=== PATIENT | male | born 1940 | race Native Hawaiian/Other Pacific Islander ===

== ENCOUNTER 2023-12-16 14:52 | Emergency (ER) | payer MEDICARE ==
[~2023-12-16] VITALS: Ht 170.2 cm; Wt 81.8 kg
[2023-12-16] MEDS: TETanus/Pertussis (Acell)/Diphther VAC/PF (Tdap-Adult) 0.5ml syringe IMVAC ONE (15:46)
[2023-12-16] MEDS: bacitracin 15gm ointment TP ONE (15:49)
[2023-12-16] MEDS: ondansetron 4mg rapidly disintigrating tab PO ONE (15:49)
[2023-12-16] MEDS: acetaminophen 325mg tablet PO ONE (15:49)
[2023-12-16] MEDS: ketorolac trometh 15mg/ml vial 15 MG/ML ML IM ONE (15:51)
[2023-12-16 16:16] VITALS: BP 151/72; PULSE 16; RESP 16; TEMP 97.9; O2SAT 99
== END 2023-12-16 16:18 | disposition home or self-care (01) ==
LOC: ER 14:53
DX: S40.011A Contusion of right shoulder, initial encounter (principal); M25.561 Pain in right knee; W18.39XA Other fall on same level, initial encounter; Y93.89 Activity, other specified; Y92.89 Other specified places as the place of occurrence of the external cause; Y99.8 Other external cause status
CPT/HCPCS: 73030; 73060; 96372; 99284; A6258; A6449; J1885; 90715